=== PATIENT | male | born 1995 | race American Indian/Alaskan Native ===

== ENCOUNTER 2021-04-02 09:42 | Emergency (ER) | payer BC ==
[2021-04-02 10:24] VITALS: BP 147/87
[2021-04-02] MEDS ORDERED: TETRACAINE 0.5% OPHTH SOLN 4ML OU ONE (10:24)
[2021-04-02] MEDS ORDERED: FLUORESCEIN 1 MG STRIP OP ONE (10:24)
--- NOTE | 2021-04-02 10:24 | Emergency Department Report ---
Eye Injury/Foreign Body - HPI Duration: 2 Days Eye Location: Right Severity: Mild Tetanus Status: Up to Date Eye Symptoms: Eye Pain: Yes, Blurred Vision: Yes, Eye Redness: Yes, Grinding/Hammering Metal: No, Used Eye Protection: No, Contact Lens Use: No, Recalls Injury: Yes, Photophobia: No Other History: 25 yo comes to ER after he got poked in the eye by his child last PM. States the sun hurt his eyes on the way to work so he came to ER. Ambulatory and non ill appearing. NAD. Drove self to ER. ED Review of Systems ROS: Stated complaint: PAIN IN RIGHT EYE, BLURRY VISION Other details as noted in HPI Comment: All other systems reviewed and negative ED Past Medical Hx - Past Medical History Previous Medical History?: No - Surgical History Past Surgical History?: No - Family History Family history: no significant - Social History Smoking Status: Never Smoker Substance Use Type: None Eye Injury Exam - Exam General: Vital signs noted. No distress. Alert and acting appropriately. globe intact no discharge/ fluid EOMS intact PERRL under flur. stain there is inc uptake over cornea no vitrous fluid leaking mild redness of conjunctiva emycin ointment applied ED Course Vital Signs 04/02/21 10:21 Temperature 98.3 F Pulse Rate 83 Respiratory 18 Rate Blood Pressure 147/87 O2 Sat by Pulse 98 Oximetry ED Medical Decision Making - Medical Decision Making Vital Signs 04/02/21 10:21 Temperature 98.3 F Pulse Rate 83 Respiratory 18 Rate Blood Pressure 147/87 O2 Sat by Pulse 98 Oximetry see exam note pt being dc home with referral to Dr Torres- frida Pt verbalizes understanding of dc plan of care. - Differential Diagnosis ro globe injury Critical care attestation.: If time is entered above; I have spent that time in minutes in the direct care of this critically ill patient, excluding procedure time. ED Disposition Clinical Impression: Corneal abrasion, Blunt trauma, right eye Disposition: DC-01 TO HOME OR SELFCARE Is pt being admited?: No Does the pt Need Aspirin: No Condition: Stable Instructions: Corneal Abrasion Additional Instructions: med as given to you today every 4 hours until gone follow up with eye MD no later than Wednesday referral below do not rub eye do not put anything in your eye other than meds I gave you today Referrals: ERLINDA TORRES MD [Staff Physician] - 3-5 Days PRIMARY CARE, [Primary Care Provider] - 3-5 Days Forms: Work/School Release Form(ED) Time of Disposition: 11:45
[2021-04-02] MEDS ORDERED: ERYTHROMYCIN 5 MG/1 GM OPHTH OINT OU SCH (10:30)
== END 2021-04-02 12:01 | disposition home or self-care (01) ==
LOC: ED 09:42
DX: S05.01XA Injury of conjunctiva and corneal abrasion without foreign body, right eye, initial encounter (principal); X58.XXXA Exposure to other specified factors, initial encounter; Y93.89 Activity, other specified; Y92.89 Other specified places as the place of occurrence of the external cause; Y99.8 Other external cause status
CPT/HCPCS: 99282

== ENCOUNTER 2022-06-12 02:55 | Emergency (ER) | payer BC, OTHER ==
--- NOTE | 2022-06-12 05:44 | Emergency Department Report ---
ED General Adult HPI - General Chief complaint: Eye Problems Stated complaint: RT EYE PAIN Time Seen by Provider: 06/12/22 05:40 Source: patient Mode of arrival: Ambulatory Limitations: No Limitations - History of Present Illness Initial comments: Patient a 26-year-old male who presents for right burning itching erythema and drainage for 2 days. Patient states 6 school-aged kids. With similar symptoms. There is no loss of vision. There is mild pain with palpation rubbing and movement. There is been no fall injury or trauma. Been no decrease in vision. There is no fevers or chills no sore throat or ear pain. - Related Data Previous Rx's Medication Instructions Recorded Last Taken Type Ibuprofen [Motrin 800 MG tab] 800 mg PO Q8HR PRN #30 tablet 06/12/22 Unknown Rx Ketotifen Fumarate [Zaditor] 2 drops OP BID PRN #5 ml 06/12/22 Unknown Rx Polymyxin B Sulf/Trimethoprim 2 drops OP Q3H 7 Days #10 ml 06/12/22 Unknown Rx [Polytrim Eye Drops] Allergies Allergy/AdvReac Type Severity Reaction Status Date / Time No Known Allergies Allergy Unverified 04/02/21 10:21 ED Review of Systems ROS: Stated complaint: RT EYE PAIN Other details as noted in HPI Constitutional: denies: chills, fever Eyes: eye pain (Burning and itching), eye discharge. denies: vision change ENT: denies: ear pain, throat pain Respiratory: denies: cough, shortness of breath, wheezing Cardiovascular: denies: chest pain, palpitations Endocrine: no symptoms reported Gastrointestinal: denies: abdominal pain, nausea, diarrhea Genitourinary: denies: urgency, dysuria Musculoskeletal: denies: back pain, joint swelling, arthralgia Skin: denies: rash, lesions Neurological: denies: headache, weakness, paresthesias, vertigo Psychiatric: denies: anxiety, depression ED Past Medical Hx - Social History Smoking Status: Never Smoker Substance Use Type: None - Medications Home Medications: Home Medications Medication Instructions Recorded Confirmed Last Taken Type Ibuprofen [Motrin 800 MG tab] 800 mg PO Q8HR PRN #30 tablet 06/12/22 Unknown Rx Ketotifen Fumarate [Zaditor] 2 drops OP BID PRN #5 ml 06/12/22 Unknown Rx Polymyxin B Sulf/Trimethoprim 2 drops OP Q3H 7 Days #10 ml 06/12/22 Unknown Rx [Polytrim Eye Drops] ED Physical Exam - General Limitations: No Limitations General appearance: alert, in no apparent distress - Head Head exam: Present: normocephalic, normal inspection - Eye Eye exam: Present: PERRL, EOMI, conjunctival injection (Right). Absent: nystagmus Pupils: Present: normal accommodation - Expanded Eye Exam Expanded Eyelids: Normal Inspection: Right Pupils: Regular, Round: Bilateral, Reactive: Bilateral Sclera/Conjunctival: Normal Inspection: Left, Injection: Right Anterior chamber: Normal Inspection: Bilateral Posterior chamber: Deferred: Bilateral Visual acuity (R) = 20/: 20 Visual acuity (L) = 20/: 20 With correction: No - ENT ENT exam: Present: normal orophraynx, mucous membranes moist, TM's normal bilaterally - Neck Neck exam: Present: normal inspection, full ROM. Absent: tenderness, lymphadenopathy - Respiratory Respiratory exam: Present: normal lung sounds bilaterally. Absent: respiratory distress, wheezes, stridor, chest wall tenderness - Cardiovascular Cardiovascular Exam: Present: regular rate, normal rhythm, normal heart sounds. Absent: systolic murmur, diastolic murmur, rubs, gallop - GI/Abdominal GI/Abdominal exam: Present: soft, normal bowel sounds - Rectal Rectal exam: Present: deferred - Extremities Exam Extremities exam: Present: normal inspection, full ROM, normal capillary refill - Back Exam Back exam: Present: normal inspection, full ROM. Absent: tenderness - Neurological Exam Neurological exam: Present: alert, oriented X3, CN II-XII intact, normal gait - Psychiatric Psychiatric exam: Present: normal affect, normal mood - Skin Skin exam: Present: warm, dry, intact, normal color. Absent: rash ED Course Vital Signs 06/12/22 03:03 Temperature 98.0 F Pulse Rate 66 Respiratory 18 Rate Blood Pressure 148/79 O2 Sat by Pulse 97 Oximetry ED Medical Decision Making - Medical Decision Making This is straightforward conjunctivitis plan DC to home with prescriptions, follow-up with ophthalmology within the next 24 hours return to emergency department should symptoms worsen. He verbalized agreement and understanding with discharge plan. Patient DC to home in stable condition at this time. Critical care attestation.: If time is entered above; I have spent that time in minutes in the direct care of this critically ill patient, excluding procedure time. ED Disposition Clinical Impression: Conjunctivitis Qualifiers: Conjunctivitis type: acute Acute conjunctivitis type: bacterial Laterality: right Qualified Code(s): H10.31 - Unspecified acute conjunctivitis, right eye Disposition: HOME / SELF CARE / HOMELESS Is pt being admited?: No Does the pt Need Aspirin: No Condition: Stable Instructions: How to Use Eye Drops and Eye Ointments Additional Instructions: Medication as prescribed, follow-up with your eye doctor in 1 to 2 days. Return to emergency department should symptoms worsen. Prescriptions: Ibuprofen [Motrin 800 MG tab] 800 mg PO Q8HR PRN #30 tablet PRN Reason: pain Polymyxin B Sulf/Trimethoprim [Polytrim Eye Drops] 2 drops OP Q3H 7 Days #10 ml Ketotifen Fumarate [Zaditor] 2 drops OP BID PRN #5 ml PRN Reason: pain itching Referrals: SKINNY KILGORE MD [Staff Physician] - 3-5 Days Forms: Work/School Release Form(ED) Time of Disposition: 05:49
[2022-06-12 06:09] VITALS: BP 136/77
== END 2022-06-12 06:09 | disposition home or self-care (01) ==
LOC: ED 02:55
DX: H10.9 Unspecified conjunctivitis (principal); Z79.899 Other long term (current) drug therapy
CPT/HCPCS: 99282